=== PATIENT | female | born 1950 | race Caucasian/White ===

== ENCOUNTER 2017-10-02 07:54 | Outpatient (RCR) | payer OTHER ==
[~2017-10-02 07:54] MED LIST: ASPIRIN E.C. 8181 MG PO; CALCIUM 1200 W/1 SGL PO; CALCIUM 600MG+D1 TAB PO; CALCIUM600 M1 PO; CARDIZEM 30MG T30 MG PO; COZAAR 50MG50 MG/TAB PO; FLEET BISACODYL5 MG PO; HCTZ12.5TAB PO; IRON325 MG PO; MULTI VITAMINS1 TAB PO; NORCO 325 MG-7.1 TAB PO; OCUVITE1 TA1 PO; OSTEO-BI-FLEX 21 TAB PO; PEPCID 20MG TAB20 MG PO; PERCOCET 325 MG1 TA2 PO; SENNA8.6 MG PO; SYNTHROID 0.0.025 MG PO; TIROSINT50 MC1 PO; ZOFRAN 4MG T4 MG/TAB PO
== END 2017-10-20 13:25 | disposition home or self-care (01) ==
LOC: WSOH 07:54
DX: S23.3XXA Sprain of ligaments of thoracic spine, initial encounter (principal); X50.0XXA Overexertion from strenuous movement or load, initial encounter; Y92.512 Supermarket, store or market as the place of occurrence of the external cause; Y99.0 Civilian activity done for income or pay; Z88.5 Allergy status to narcotic agent

== ENCOUNTER → 2017-10-30 | Outpatient (CLI) | payer BC | LOC: COL.RAD 07:32 | DX: M48.54XA Collapsed vertebra, not elsewhere classified, thoracic region, initial encounter for fracture (principal); R29.890 Loss of height; Z98.890 Other specified postprocedural states; G89.29 Other chronic pain ==

== ENCOUNTER 2018-01-07 07:51 | Outpatient (CLI) | payer BC ==
[2006-07-08 08:43] VITALS: BP 129/77
[~2018-01-07] VITALS: Ht 144.8 cm; Wt 41.3 kg
[2018-01-07] MEDS ORDERED: COZAAR 25MG25 MG/TAB PO (08:05)
[2018-01-07 08:08] VITALS: BP 117/55; PULSE 69; TEMP 97.4
== END 2018-01-07 10:00 | disposition home or self-care (01) ==
LOC: EUO 07:51
DX: M81.0 Age-related osteoporosis without current pathological fracture (principal); M48.54XA Collapsed vertebra, not elsewhere classified, thoracic region, initial encounter for fracture; Z98.890 Other specified postprocedural states
CPT/HCPCS: J3489

== ENCOUNTER → 2018-03-16 | Outpatient (CLI) | payer BC ==
[~2018-03-16] MED LIST changes: +COZAAR 25MG25 MG/TAB PO
== END ==
LOC: MC.RAD 02-12 07:40
DX: Z12.31 Encounter for screening mammogram for malignant neoplasm of breast (principal); R92.0 Mammographic microcalcification found on diagnostic imaging of breast

== ENCOUNTER → 2018-03-19 | Outpatient (CLI) | payer BC | LOC: MC.RAD 07:56 | DX: R92.0 Mammographic microcalcification found on diagnostic imaging of breast (principal) ==

== ENCOUNTER → 2018-03-24 | Outpatient (CLI) | payer BC | LOC: MC.RAD 08:06 | DX: D24.2 Benign neoplasm of left breast (principal) | CPT/HCPCS: 30634 ==

== ENCOUNTER 2018-04-18 11:16 | Emergency (ER) | payer OTHER ==
[2006-07-08 08:43] VITALS: BP 129/77
[~2018-04-18] VITALS: Ht 144.8 cm; Wt 40.8 kg
[2018-04-18 11:19] VITALS: BP 161/82; TEMP 98.2
[2018-04-18] MEDS ORDERED: ROXICODONE 55 MG/TAB PO (11:39)
[2018-04-18] MEDS ORDERED: BENADRYL25 M2 PO (11:40)
[2018-04-18] MEDS ORDERED: NORCOELIX PO (12:38)
[2018-04-18 13:21] VITALS: PULSE 90
== END 2018-04-18 13:25 | disposition home or self-care (01) ==
LOC: COL.ER 11:16
DX: S50.01XA Contusion of right elbow, initial encounter (principal); S70.01XA Contusion of right hip, initial encounter; S20.212A Contusion of left front wall of thorax, initial encounter; Z87.891 Personal history of nicotine dependence; W19.XXXA Unspecified fall, initial encounter; Y92.89 Other specified places as the place of occurrence of the external cause

== ENCOUNTER → 2018-08-09 | Outpatient (CLI) | payer BC ==
[~2018-08-09] MED LIST changes: +BENADRYL25 M2 PO; +NORCOELIX PO; +ROXICODONE 55 MG/TAB PO
== END ==
LOC: COL.RAD 09:27
DX: R10.84 Generalized abdominal pain (principal)
CPT/HCPCS: Q9967

== ENCOUNTER → 2018-08-16 | Outpatient (CLI) | payer BC | LOC: COL.RAD 09:28 | DX: K22.4 Dyskinesia of esophagus (principal); Z90.3 Acquired absence of stomach [part of]; Z98.890 Other specified postprocedural states ==

== ENCOUNTER 2019-01-23 01:28 | Emergency (ER) | payer OTHER ==
[2006-07-08 08:43] VITALS: BP 129/77
[~2019-01-23] VITALS: Ht 144.8 cm; Wt 42.3 kg
[2019-01-23 01:32] VITALS: TEMP 97
[2019-01-23] MEDS ORDERED: OXY IR5 MG PO (01:47)
[2019-01-23] MEDS ORDERED: ZOFRAN ODT4 MG PO (02:54)
[2019-01-23] MEDS ORDERED: VALIUM 5MG T5 MG/TAB PO (02:54)
[2019-01-23] MEDS ORDERED: PERCOCET 325 MG1 TA2 PO (04:31)
[2019-01-23] MEDS ORDERED: DOXYCYCLINE 10100 MG PO (05:04)
[2019-01-23 05:40] VITALS: BP 139/81; PULSE 98
== END 2019-01-23 05:40 | disposition home or self-care (01) ==
LOC: COL.ER 01:28
DX: S52.502A Unspecified fracture of the lower end of left radius, initial encounter for closed fracture (principal); S42.202A Unspecified fracture of upper end of left humerus, initial encounter for closed fracture; J18.9 Pneumonia, unspecified organism; I10 Essential (primary) hypertension; E03.9 Hypothyroidism, unspecified; J45.909 Unspecified asthma, uncomplicated; Z88.5 Allergy status to narcotic agent; Z87.891 Personal history of nicotine dependence; W01.0XXA Fall on same level from slipping, tripping and stumbling without subsequent striking against object, initial encounter; Y92.59 Other trade areas as the place of occurrence of the external cause
CPT/HCPCS: J1100; J2270; J7030; Q4021

== ENCOUNTER 2019-04-23 14:30 | Emergency (ER) | payer OTHER ==
[2006-07-08 08:43] VITALS: BP 129/77
[~2019-04-23] VITALS: Ht 144.8 cm; Wt 45.0 kg
[~2019-04-23 14:30] MED LIST changes: +DOXYCYCLINE 10100 MG PO; +OXY IR5 MG PO; +VALIUM 5MG T5 MG/TAB PO; +ZOFRAN ODT4 MG PO
[2019-04-23 14:33] VITALS: TEMP 97.7
[2019-04-23 17:49] VITALS: BP 169/94; PULSE 94
== END 2019-04-23 17:49 | disposition home or self-care (01) ==
LOC: COL.ER 14:30
DX: S42.291A Other displaced fracture of upper end of right humerus, initial encounter for closed fracture (principal); I10 Essential (primary) hypertension; Z98.890 Other specified postprocedural states; Z88.6 Allergy status to analgesic agent; X50.1XXA Overexertion from prolonged static or awkward postures, initial encounter; Y99.0 Civilian activity done for income or pay
CPT/HCPCS: J3010

== ENCOUNTER → 2019-05-09 | Outpatient (CLI) | payer OTHER | LOC: COL.RAD 06:26 | DX: S42.211A Unspecified displaced fracture of surgical neck of right humerus, initial encounter for closed fracture (principal) ==

== ENCOUNTER 2019-09-01 15:00 | Inpatient (IN) | payer BC, MEDICARE ==
[~2019-09-01] VITALS: Ht 149.9 cm; Wt 52.0 kg
[2019-09-01 15:56] LABS: BASO % 0.4 % (0.0-2.0); EOS # 0.1 (0.0-0.7); EOS % 0.8 % (0-4.0); GRAN # 7.6 (1.4-6.5); GRAN % 81.9 % (42.2-75.2); HEMATOCRIT 45.6 % (37.0-47.0); HEMOGLOBIN 14.7 g/dl (12.5-16.0); MEAN CELL VOLUME 93 fl (80.0-100.0); MEAN CORPUSCULAR HEMOGLOBIN 30 pg (27.0-31.0); MEAN CORPUSCULAR HGB CONC 32 g/dl (33.0-37.0); MEAN PLATELET VOLUME 8.2 fl (7.4-10.4); MONO # 0.4 (0.1-0.6); MONO % 4.3 % (1.7-9.3); PLATELET COUNT 227 K/mm3 (130-400); RED BLOOD COUNT 4.91 M/mm3 (4.10-5.30); REDCELL DISTRIBUTION WIDTH-CV 13.2 % (11.5-14.5)
[2019-09-01 16:07] LABS: ALBUMIN 4.6 gm/dL (3.5-5.0); BILIRUBIN,TOTAL 0.3 mg/dL (0.0-1.0); CALCIUM 9.4 mg/dL (8.4-10.2); CREATININE, serum 0.81 (0.52-1.25); TOTAL PROTEIN 8.3 gm/dL (6.4-8.2)
[2019-09-01] MEDS ORDERED: NORCO 325 MG-51 TAB PO (17:20)
[2019-09-01 20:25] VITALS: BP 116/67; PULSE 88; TEMP 98.4
[2019-09-01 20:28] VITALS: BP 116/67; PULSE 88; TEMP 98.4
[2019-09-01 23:08] VITALS: BP 125/71; PULSE 84; TEMP 98.1
[2019-09-02 04:57] VITALS: BP 114/64; PULSE 90; TEMP 98.2
[2019-09-02 07:47] VITALS: BP 107/57; PULSE 86; TEMP 98.3
[2019-09-02 11:23] VITALS: BP 114/70; PULSE 81; TEMP 98.6
[2019-09-02 11:39] LABS: INR 1.1 (0.8-3.0); PROTHROMBIN TIME 12.6 SECONDS (9.7-12.8)
[2019-09-02 16:06] VITALS: BP 101/53; PULSE 82; TEMP 98.7
[2019-09-02 19:17] VITALS: BP 119/61; PULSE 79; TEMP 98.5
[2019-09-02 23:15] VITALS: BP 131/62; PULSE 85; TEMP 98.5
[2019-09-03 03:25] VITALS: BP 117/56; PULSE 83; TEMP 99
[2019-09-03 07:18] VITALS: BP 137/75; PULSE 86; TEMP 98.9
[2019-09-03 12:06] VITALS: BP 155/89; PULSE 88; TEMP 99.3
[2019-09-03 16:03] VITALS: BP 125/65; PULSE 76; TEMP 97.7
[2019-09-03 21:00] VITALS: BP 135/66; PULSE 71; TEMP 98.4
[2019-09-04] VITALS (7 sets, daily range): BP systolic 104–143; BP diastolic 59–82; PULSE 69–87; TEMP 97.7–99.5
[2019-09-04 06:12] LABS: BASO % 0.4 % (0.0-2.0); EOS # 0.2 (0.0-0.7); EOS % 4.7 % (0-4.0); GRAN # 3.1 (1.4-6.5); GRAN % 66.7 % (42.2-75.2); LYMPH % 20.8 % (20.0-51.0); MEAN CELL VOLUME 95 fl (80.0-100.0); MEAN CORPUSCULAR HGB CONC 32 g/dl (33.0-37.0); MONO # 0.3 (0.1-0.6); RED BLOOD COUNT 3.75 M/mm3 (4.10-5.30); REDCELL DISTRIBUTION WIDTH-CV 13.2 % (11.5-14.5)
[2019-09-04 06:25] LABS: HEMATOCRIT 35.5 % (37.0-47.0); HEMOGLOBIN 11.4 g/dl (12.5-16.0); MEAN CORPUSCULAR HEMOGLOBIN 30 pg (27.0-31.0); PLATELET COUNT 120 K/mm3 (130-400)
[2019-09-04 06:32] LABS: CALCIUM 8.2 mg/dL (8.4-10.2); CREATININE, serum 0.58 (0.52-1.25); POTASSIUM 4.4 mmol/L (3.4-5.0)
[2019-09-05 03:35] VITALS: BP 140/64; PULSE 73; TEMP 97.9
[2019-09-05 07:57] VITALS: BP 120/54; PULSE 67; TEMP 97.9
[2019-09-05 11:06] VITALS: BP 129/65; PULSE 71; TEMP 97.9
[2019-09-05 16:00] VITALS: BP 104/62; PULSE 68; TEMP 98.7
[2019-09-05 19:48] VITALS: BP 126/69; PULSE 77; TEMP 98.3
[2019-09-05 23:54] VITALS: BP 105/50; PULSE 67; TEMP 98.3
[2019-09-06 04:00] VITALS: BP 132/56; PULSE 67; TEMP 98.1
[2019-09-06 07:00] VITALS: BP 111/56; PULSE 61; TEMP 97.7
[2019-09-06 07:11] LABS: BASO % 0.2 % (0.0-2.0); EOS # 0.2 (0.0-0.7); EOS % 4.3 % (0-4.0); GRAN # 2.7 (1.4-6.5); GRAN % 60.3 % (42.2-75.2); HEMOGLOBIN 11.8 g/dl (12.5-16.0); LYMPH # 1.1 (1.2-3.4); LYMPH % 24.9 % (20.0-51.0); MEAN CELL VOLUME 92 fl (80.0-100.0); MEAN CORPUSCULAR HEMOGLOBIN 30 pg (27.0-31.0); MEAN CORPUSCULAR HGB CONC 33 g/dl (33.0-37.0); MEAN PLATELET VOLUME 8.7 fl (7.4-10.4); MONO # 0.4 (0.1-0.6); MONO % 9.9 % (1.7-9.3); PLATELET COUNT 137 K/mm3 (130-400); RED BLOOD COUNT 3.91 M/mm3 (4.10-5.30); REDCELL DISTRIBUTION WIDTH-CV 13.2 % (11.5-14.5)
[2019-09-06 07:13] LABS: HEMATOCRIT 36.1 % (37.0-47.0)
[2019-09-06 07:24] LABS: CALCIUM 8.8 mg/dL (8.4-10.2); CREATININE, serum 0.64 (0.52-1.25); POTASSIUM 3.9 mmol/L (3.4-5.0)
[2019-09-06 09:30] VITALS: BP 135/63; PULSE 61; TEMP 97.6
[2019-09-06 12:00] VITALS: BP 127/81; PULSE 96; TEMP 97.7
[2019-09-06 17:21] VITALS: BP 147/69; PULSE 77; TEMP 97.8
[2019-09-06 20:38] VITALS: BP 132/83; PULSE 97; TEMP 98.4
[2019-09-07 01:10] VITALS: BP 117/69; PULSE 79; TEMP 97.3
[2019-09-07 04:30] VITALS: BP 146/85; PULSE 79; TEMP 97.8
[2019-09-07 07:00] VITALS: BP 149/85; PULSE 67; TEMP 98.5
[2019-09-07 07:27] LABS: BASO % 0.2 % (0.0-2.0); GRAN # 5.2 (1.4-6.5); GRAN % 84.3 % (42.2-75.2); HEMATOCRIT 37.4 % (37.0-47.0); HEMOGLOBIN 12.6 g/dl (12.5-16.0); LYMPH # 0.6 (1.2-3.4); LYMPH % 9.6 % (20.0-51.0); MEAN CELL VOLUME 90 fl (80.0-100.0); MEAN CORPUSCULAR HEMOGLOBIN 30 pg (27.0-31.0); MEAN CORPUSCULAR HGB CONC 34 g/dl (33.0-37.0); MEAN PLATELET VOLUME 8.9 fl (7.4-10.4); MONO # 0.3 (0.1-0.6); MONO % 5.4 % (1.7-9.3); PLATELET COUNT 185 K/mm3 (130-400); RED BLOOD COUNT 4.17 M/mm3 (4.10-5.30); REDCELL DISTRIBUTION WIDTH-CV 13.2 % (11.5-14.5)
[2019-09-07 07:40] LABS: CALCIUM 9.2 mg/dL (8.4-10.2); CREATININE, serum 0.54 (0.52-1.25); POTASSIUM 3.9 mmol/L (3.4-5.0)
[2019-09-07 10:30] VITALS: BP 130/82; PULSE 65; TEMP 98.3
[2019-09-07 16:09] VITALS: BP 143/84; PULSE 72; TEMP 97.9
[2019-09-07 23:55] VITALS: BP 142/77; PULSE 83; TEMP 98.1
[2019-09-08 04:00] VITALS: BP 144/85; PULSE 75; TEMP 98.2
[2019-09-08 07:11] VITALS: BP 149/79; PULSE 88; TEMP 97.8
[2019-09-08] MEDS ORDERED: NORCO 325 MG-51 TAB PO (11:07)
[2019-09-08] MEDS ORDERED: B-121000 MCG PO (11:08)
[2019-09-08 12:23] VITALS: BP 150/80; PULSE 79; TEMP 97
[2019-09-08 13:33] VITALS: BP 150/80; PULSE 79; TEMP 97
== END 2019-09-08 15:00 | DRG 551 ==
LOC: COL.ER 15:00 → SURG 18:03
PROVIDERS: Family Medicine; Physician Assistant; Student in an Organized Health Care Education/Training Program; ADMIT Internal Medicine
PROC: 3E0R33Z Introduction of Anti-inflammatory into Spinal Canal, Percutaneous Approach (ICD-10-PCS; principal; 2019-09-06)
DX: S32.049A Unspecified fracture of fourth lumbar vertebra, initial encounter for closed fracture (principal); E43 Unspecified severe protein-calorie malnutrition; S22.069A Unspecified fracture of T7-T8 vertebra, initial encounter for closed fracture; S22.20XA Unspecified fracture of sternum, initial encounter for closed fracture; S32.592A Other specified fracture of left pubis, initial encounter for closed fracture; S22.059A Unspecified fracture of T5-T6 vertebra, initial encounter for closed fracture; E03.9 Hypothyroidism, unspecified; I10 Essential (primary) hypertension; K21.9 Gastro-esophageal reflux disease without esophagitis; G89.29 Other chronic pain; M54.9 Dorsalgia, unspecified; Z96.642 Presence of left artificial hip joint; W19.XXXA Unspecified fall, initial encounter; Y92.029 Unspecified place in mobile home as the place of occurrence of the external cause; Z68.21 Body mass index [BMI] 21.0-21.9, adult
CPT/HCPCS: 99222-AI; 99231-AI; 99232-AI; 99239; A9284; J1644; J2270; J3301; J7030

== ENCOUNTER → 2019-09-29 | Outpatient (CLI) | payer BC ==
[~2019-09-29] MED LIST changes: +B-121000 MCG PO; +NORCO 325 MG-51 TAB PO
== END ==
LOC: MC.RAD 11:00
DX: R92.1 Mammographic calcification found on diagnostic imaging of breast (principal); Z98.82 Breast implant status

== ENCOUNTER 2019-10-05 10:07 | Outpatient (CLI) | payer BC ==
[2006-07-08 08:43] VITALS: BP 129/77
[~2019-10-05] VITALS: Ht 144.8 cm; Wt 51.3 kg
[2019-10-05] VITALS (11 sets, daily range): BP systolic 113–176; BP diastolic 45–97; PULSE 61–96; TEMP 98.3
[2019-10-05] MEDS ORDERED: VITAMIN B12 1541 TAB PO (10:59)
[2019-10-05] MEDS ORDERED: LYRICA 25MG CAP25 MG PO (11:03)
[2019-10-05] MEDS ORDERED: LYRICA 50MG CAP50 MG PO (11:03)
[2019-10-05] MEDS ORDERED: ROXICODONE 55 MG/TAB PO (11:03)
--- NOTE | 2019-10-05 12:11 | NUR ---
SEE MERGE FOR MEDICATION ADMINISTRATION TIMES INTRA\POST SEDATION ASSESSMENTS.
--- NOTE | 2019-10-05 13:03 | NUR ---
Pt returned to room 10.Report from Daniella Geller.
--- NOTE | 2019-10-05 14:57 | NUR ---
Discharge instructions given to pt.Pt verbalizes understanding.INT removed,catheter tip intact.
--- NOTE | 2019-10-05 15:22 | NUR ---
Pt escorted out via wheelhair by this nurse.
== END 2019-10-05 15:22 | disposition home or self-care (01) ==
LOC: COL.CAR 10:07
DX: S32.040A Wedge compression fracture of fourth lumbar vertebra, initial encounter for closed fracture (principal); Z96.642 Presence of left artificial hip joint; Z88.8 Allergy status to other drugs, medicaments and biological substances; Z87.891 Personal history of nicotine dependence
CPT/HCPCS: J2250; J3010; J7120

== ENCOUNTER 2020-04-18 10:43 | Outpatient (CLI) | payer MEDICARE, OTHER ==
[2006-07-08 08:43] VITALS: BP 129/77
[~2020-04-18] VITALS: Ht 144.8 cm; Wt 49.9 kg
[~2020-04-18 10:43] MED LIST changes: +LYRICA 25MG CAP25 MG PO; +LYRICA 50MG CAP50 MG PO; +VITAMIN B12 1541 TAB PO
[2020-04-18 11:15] VITALS: BP 149/92; PULSE 92; TEMP 97.8
[2020-04-18] MEDS ORDERED: LIORESAL 1010 MG/TAB PO (11:19)
[2020-04-18] MEDS ORDERED: VITAMIN D 1001000 IU PO (11:20)
[2020-04-18] MEDS ORDERED: TUMS500 MG PO (11:20)
[2020-04-18] MEDS ORDERED: BENTYL 10MG10 MG/CAP PO (11:21)
== END 2020-04-18 11:45 | disposition home or self-care (01) ==
LOC: EUO 10:43
DX: M81.0 Age-related osteoporosis without current pathological fracture (principal)
CPT/HCPCS: J3489

== ENCOUNTER → 2020-05-31 | Outpatient (CLI) | payer MEDICARE, OTHER ==
[~2020-05-31] MED LIST changes: +BENTYL 10MG10 MG/CAP PO; +LIORESAL 1010 MG/TAB PO; +TUMS500 MG PO; +VITAMIN D 1001000 IU PO
== END ==
LOC: COL.RAD 15:19
DX: J90 Pleural effusion, not elsewhere classified (principal); J44.9 Chronic obstructive pulmonary disease, unspecified; Z98.890 Other specified postprocedural states; Z87.19 Personal history of other diseases of the digestive system
CPT/HCPCS: Q9967

== ENCOUNTER → 2020-06-28 | Outpatient (CLI) | payer MEDICARE, OTHER | LOC: COL.RAD 11:13 | DX: N20.0 Calculus of kidney (principal); K82.8 Other specified diseases of gallbladder; Z98.890 Other specified postprocedural states | CPT/HCPCS: Q9967 ==

== ENCOUNTER 2021-03-20 13:16 | Day surgery (SDC) | payer MEDICARE, OTHER ==
[2006-07-08 08:43] VITALS: BP 129/77
[2021-03-20] VITALS (8 sets, daily range): BP systolic 82–129; BP diastolic 49–88; PULSE 74–96; TEMP 98–98.1
[~2021-03-20] VITALS: Ht 137.2 cm; Wt 36.4 kg
[2021-03-20] MEDS ORDERED: MOVE FREE JOIN1 EACH PO (14:12)
[2021-03-20] MEDS ORDERED: CIPRO 500MG TA500 MG PO (14:13)
[2021-03-20] MEDS ORDERED: CALCIUM-500 5001 CTB PO (14:15)
[2021-03-20] MEDS ORDERED: PRILOTC PO (14:18)
[2021-03-20] MEDS ORDERED: TYLENOL 500MG500 MG PO (14:21)
[2021-03-20] MEDS ORDERED: CLARITIN 1010 MG/TAB PO (14:21)
[2021-03-20] MEDS ORDERED: OCUVITE1 TA1 PO (14:22)
[2021-03-20] MEDS ORDERED: CENTRUM SILVER1 CTB PO (14:23)
[2021-03-20] MEDS ORDERED: MIRALAX119G PO (14:24)
[2021-03-20] MEDS ORDERED: GAS RELIEF125 MG PO (14:25)
--- NOTE | 2021-03-20 15:25 | NUR ---
Heart is regular. Breath is shallow, lungs are clear. Bowel sounds audible.
--- NOTE | 2021-03-20 19:23 | NUR ---
PATIENT ARRIVES TO ROOM, DENIES ANY C/O AT THIS TIME. INSTRUCTED ON CRITERIA TO BE DISMISSED, PATIENT VERBALIZED UNDERSTANDING.
--- NOTE | 2021-03-20 22:10 | NUR ---
REVIEWED WITH PATIENT DISCHARGE INSTRUCTIONS WITH NO FURTHER QUESTIONS OR CONCERNS. IV SITE DISCONTINUED FOR DISCHARGE STATUS. PATIENT VOIDED X1 PRIOR TO DISCHARGE OF RED TINGED URINE WITH NO CLOTS OBSERVED IN TOILET BOWL. ENCOURAGED PATIENT TO DRINK FLUIDS AND REVIEWED WITH PATIENT WHEN TO CALL DR POST PROCEDURE. PATIENT'S SPOUSE PRESENT ON DISCHARGE TO TAKE PATIENT HOME. PATIENT ESCORTED OFF UNIT PER W/C WITH STAFF EMPLOYEE ESCORT.
[2021-03-21 00:33] VITALS: BP 123/49; PULSE 70
== END 2021-03-20 22:20 | disposition home or self-care (01) ==
LOC: SDCO 13:16 → SURG 19:15 → SDCO 22:20
DX: N20.1 Calculus of ureter (principal); R35.0 Frequency of micturition; E03.9 Hypothyroidism, unspecified; R32 Unspecified urinary incontinence; D50.9 Iron deficiency anemia, unspecified; K21.9 Gastro-esophageal reflux disease without esophagitis; G89.29 Other chronic pain; M81.0 Age-related osteoporosis without current pathological fracture; Z79.83 Long term (current) use of bisphosphonates; Z79.890 Hormone replacement therapy; Z79.891 Long term (current) use of opiate analgesic; Z79.82 Long term (current) use of aspirin; Z79.899 Other long term (current) drug therapy; G62.9 Polyneuropathy, unspecified
CPT/HCPCS: OP; C1894; C2617; J0690; J2405; J2704; J3010; J7120; Q9967

== ENCOUNTER 2021-04-05 07:19 | Inpatient (IN) | payer MEDICARE, OTHER ==
[2006-07-08 08:43] VITALS: BP 129/77
[2021-04-05] VITALS (26 sets, daily range): BP systolic 94–147; BP diastolic 34–97; PULSE 71–102; TEMP 97.5–97.7
[~2021-04-05] VITALS: Ht 137.2 cm; Wt 36.5 kg
[~2021-04-05 07:19] MED LIST changes: +CALCIUM-500 5001 CTB PO; +CENTRUM SILVER1 CTB PO; +CIPRO 500MG TA500 MG PO; +CLARITIN 1010 MG/TAB PO; +GAS RELIEF125 MG PO; +MIRALAX119G PO; +MOVE FREE JOIN1 EACH PO; +PRILOTC PO; +TYLENOL 500MG500 MG PO
[2021-04-05] MEDS ORDERED: OMNICEF 300MG300 MG PO (08:22)
[2021-04-05] MEDS ORDERED: BENADRYL25 M2 PO (08:50)
[2021-04-05] MEDS ORDERED: COMPAZINE 5MG TA5 MG PO (08:55)
[2021-04-05] MEDS ORDERED: NATURAL E400 IU PO (08:56)
--- NOTE | 2021-04-05 13:33 | NUR ---
Patient down to radiology for neph tube placement.
--- NOTE | 2021-04-05 14:03 | NUR ---
PT REPORTS PAIN BUT UNABLE TO RATE. GIVEN 0.5 VERSED AND 25 MCG FENTANYL KING SUNG
--- NOTE | 2021-04-05 14:19 | NUR ---
GIVEN VERSED 0.5 MG AND FENTANYL 25 MCG FOR PAIN KING SUNG
--- NOTE | 2021-04-05 14:35 | NUR ---
BP CUFF NOT WORKING
--- NOTE | 2021-04-05 15:10 | NUR ---
CALLED REPORT TO LISA ESTRELLA. PT ASSISTED TO WHEELCHAIR. DRAIN IN PLACE AND SECURED.
--- NOTE | 2021-04-05 15:21 | NUR ---
Patient back from neph tube placement to room by wheelchair. States she is having some back pain, educated patient on VS and pain medication use.
--- NOTE | 2021-04-05 18:29 | NUR ---
Contacted Dr. Kaufman re pain medications, patient states she is allergic to norco and home roxycodone helps with back pain, orders changed per TORB. Patient doing well this afternoon, encouraged increased fluid intake. Voided clear peach urine. Spouse at bedside. Patient denies further needs at this time. Denies needs at this time. Will report off to mini bar attendant.
--- NOTE | 2021-04-05 18:40 | NUR ---
Contacted Dr. Kaufman, patient called out to nurses station, states she is having sudden chest pain, having difficulties catching her breath and having dry heaves/nausea. Contacted Serena REESE for hospitalist consult, orders for EKG, chest xray, and labs. Contacted departments for stat orders. Reported off to community health planning director.
[2021-04-05 19:25] LABS: HEMATOCRIT 43.3 % (37.0-47.0); HEMOGLOBIN 14.5 g/dl (12.5-16.0); MEAN CELL VOLUME 92 fl (80.0-100.0); MEAN CORPUSCULAR HEMOGLOBIN 31 pg (27.0-31.0); MEAN CORPUSCULAR HGB CONC 34 g/dl (33.0-37.0); PLATELET COUNT 177 K/mm3 (130-400); RED BLOOD COUNT 4.71 M/mm3 (4.10-5.30); REDCELL DISTRIBUTION WIDTH-CV 14.4 % (11.5-14.5)
[2021-04-05 19:45] LABS: ALBUMIN 3.6 gm/dL (3.5-5.0); BILIRUBIN,TOTAL 0.3 mg/dL (0.0-1.0); CALCIUM 8.9 mg/dL (8.4-10.2); CREATININE, serum 0.8 (0.52-1.25); POTASSIUM 4.4 mmol/L (3.4-5.0); TOTAL PROTEIN 6.9 gm/dL (6.4-8.2)
[2021-04-05 19:52] LABS: MAGNESIUM 1.7 mg/dL (1.6-2.3); PHOSPHOROUS 3.9 mg/dL (2.5-4.5)
[2021-04-05 20:32] LABS: BAND 19 % (0-10); LYMPHOCYTE 2 % (20.0-51.0); NEUTROPHILS 79 % (42.0-75.2)
[2021-04-05 20:33] LABS: PLATELET ESTIMATE NORMAL (NORMAL)
[2021-04-06] VITALS (7 sets, daily range): BP systolic 91–131; BP diastolic 39–69; PULSE 71–93; TEMP 97–99.2
--- NOTE | 2021-04-06 03:49 | NUR ---
PATIENT C/O BACK PAIN DILAUDID 0.5 MG GIVEN AND IV FLUID STARTED. RIGHT FLANK NEPHRECTONY TUBE INTACT. PATIENT WENT DOWN FOR ABDOMINAL CT. TOLERATING CLEAR LIQUIDS. DENIES NAUSEA/VOMITING. RECEIVED ONE DOSE OF UNYSAN. ALERT AND ORIENTED X4. WILL CONTINUE TO MONITOR.
--- NOTE | 2021-04-06 10:26 | NUR ---
Discharge Plan: Home with , Gene. Sw met with the pt, (, Gene present in room (ph# [phone]), who stated her preference to return home in [place] once medially stable. Pt is independent on all her ADLs and uses a walker at home. The pt informed Sw that her is her caregiver and helps her with anything she needs. Pt informed Sw that her PCP is Dr. Toshia Uribe at [facility]. Pt receives her medication from [facility] in [place], [place]. Pt has used HH services PT in the past and does not remember the name. Pt states she does not have a DPOA- Hc and is not interested in one at this time. No other needs stated at this time. Sw to await further recommendations and follow up as needed.
--- NOTE | 2021-04-06 17:30 | NUR ---
PT HAD NO C/O THIS SHIFT. NORCO PO CONTROLLING PAIN WELL. NEPHTUBE PATENT SEE I&O'S.
--- NOTE | 2021-04-06 21:30 | NUR ---
PT AWAKE, ALERT AND ORIENTED X4. REPORTS CHRONIC BACK PAIN AND AT NEPHROSTOMY TUBE INSERTION SITE. HAS IVF TO RIGHT WRIST, INFUSING WITHOUT PROBLEM. RT NEPH TUBE TO BSD, EMPTIED FOR 250CC OF LIGHT YELLOW URINE. ASSISTED TO BATHROOM, VOIDS 200CC OF YELLOW URINE. GAIT STEADY. BACK TO BED WITHOUT PROBLEM. DENIES NEEDS AT THIS TIME.
--- NOTE | 2021-04-07 00:04 | NUR ---
PT REPORTS BACK PAIN, MEDICATED WITH NORCO 1/2 TAB OF 5/325MG PO AT THIS TIME.
[2021-04-07 03:37] VITALS: BP 115/64; PULSE 77; TEMP 98.5
--- NOTE | 2021-04-07 05:45 | NUR ---
NORCO 2.5MG PO FOR BACK PAIN. NEPH TUBE DRAINING WELL.
[2021-04-07 06:30] LABS: BASO % 0.6 % (0.0-2.0); EOS # 0.1 (0.0-0.7); EOS % 1.8 % (0-4.0); GRAN # 3.3 (1.4-6.5); GRAN % 64.5 % (42.2-75.2); LYMPH # 1.3 (1.2-3.4); LYMPH % 26.2 % (20.0-51.0); MEAN CELL VOLUME 94 fl (80.0-100.0); MEAN CORPUSCULAR HGB CONC 33 g/dl (33.0-37.0); MEAN PLATELET VOLUME 8.8 fl (7.4-10.4); MONO # 0.4 (0.1-0.6); MONO % 6.9 % (1.7-9.3); PLATELET COUNT 142 K/mm3 (130-400); RED BLOOD COUNT 3.85 M/mm3 (4.10-5.30); REDCELL DISTRIBUTION WIDTH-CV 14.9 % (11.5-14.5)
[2021-04-07 06:40] LABS: HEMATOCRIT 36.2 % (37.0-47.0); HEMOGLOBIN 12.1 g/dl (12.5-16.0); MEAN CORPUSCULAR HEMOGLOBIN 31 pg (27.0-31.0)
[2021-04-07 06:49] LABS: CALCIUM 7.6 mg/dL (8.4-10.2); CREATININE, serum 0.68 (0.52-1.25); POTASSIUM 3.6 mmol/L (3.4-5.0)
[2021-04-07 08:41] VITALS: BP 131/78; PULSE 77; TEMP 98.3
--- NOTE | 2021-04-07 10:49 | NUR ---
DISCHARGE INSTRUCTIONS REVIEWED WITH PATIENT AND SPOUSE. QUESTIONS SOLICITED AND ANSWERED. PT LEFT PER WHEEL CHAIR IN POV.
== END 2021-04-07 10:55 | disposition home or self-care (01) | DRG 694 ==
LOC: SDCO 07:19 → SURG 07:30 → SDCO 10:30 → SURG 04-07 10:55
PROVIDERS: Hospitalist; Nurse Practitioner Family; ADMIT Urology
PROC: 0TJ98ZZ Inspection of Ureter, Via Natural or Artificial Opening Endoscopic (ICD-10-PCS; principal; 2021-04-05 10:30)
DX: N20.0 Calculus of kidney (principal); K44.9 Diaphragmatic hernia without obstruction or gangrene; I10 Essential (primary) hypertension; E03.9 Hypothyroidism, unspecified; G89.29 Other chronic pain; M54.9 Dorsalgia, unspecified; M81.0 Age-related osteoporosis without current pathological fracture; G62.9 Polyneuropathy, unspecified; Z87.440 Personal history of urinary (tract) infections; M19.90 Unspecified osteoarthritis, unspecified site; Z96.642 Presence of left artificial hip joint
CPT/HCPCS: 99223; 99232-AI; C1729; C1769; C9113; J0690; J1100; J1170; J2250; J2270; J2370; J2405; J2543; J2704; J3010; J7030; J7120; Q9967

== ENCOUNTER → 2021-05-10 | Outpatient (CLI) | payer MEDICARE, OTHER ==
[~2021-05-10] MED LIST changes: +COMPAZINE 5MG TA5 MG PO; +LEVOXYL0.05 MG PO; +NATURAL E400 IU PO; +OMNICEF 300MG300 MG PO; +PHENERGAN 25 TA25 MG PO
== END ==
LOC: COL.RAD 07:01
DX: N20.1 Calculus of ureter (principal); N99.71 Accidental puncture and laceration of a genitourinary system organ or structure during a genitourinary system procedure
CPT/HCPCS: Q9967

== ENCOUNTER 2021-09-11 07:30 | Outpatient (CLI) | payer MEDICARE, OTHER ==
[2006-07-08 08:43] VITALS: BP 129/77
[~2021-09-11] VITALS: Ht 137.2 cm; Wt 33.0 kg
[~2021-09-11 07:30] MED LIST changes: -LEVOXYL0.05 MG PO; -PHENERGAN 25 TA25 MG PO
[2021-09-11] MEDS ORDERED: PHENERGAN 25 TA25 MG PO (08:03)
[2021-09-11] MEDS ORDERED: LEVOXYL0.05 MG PO (08:04)
[2021-09-11 08:26] VITALS: BP 100/66; PULSE 95; TEMP 98.5
== END 2021-09-11 11:44 | disposition home or self-care (01) ==
LOC: EUO 07:30
DX: M81.0 Age-related osteoporosis without current pathological fracture (principal)
CPT/HCPCS: J3489

== ENCOUNTER → 2021-10-23 | Outpatient (CLI) | payer MEDICARE, OTHER ==
[~2021-10-23] MED LIST changes: +LEVOXYL0.05 MG PO; +PHENERGAN 25 TA25 MG PO
== END ==
LOC: COL.RAD 10:35
DX: Z01.812 Encounter for preprocedural laboratory examination (principal); K44.9 Diaphragmatic hernia without obstruction or gangrene; N20.0 Calculus of kidney; M43.8X5 Other specified deforming dorsopathies, thoracolumbar region; Z96.642 Presence of left artificial hip joint
CPT/HCPCS: Q9967

== ENCOUNTER 2022-06-16 13:22 | Inpatient (IN) | payer MEDICARE, OTHER ==
[~2022-06-16] VITALS: Ht 144.8 cm; Wt 43.0 kg
[2022-06-16 14:35] LABS: COLLECTION METHOD CATHETER
[2022-06-16 14:44] LABS: MUCOUS Present (NOT PRESENT); SQUAMOUS EPITHELIAL 0-2 /hpf (0-10); URINE APPEARANCE Hazy (CLEAR/HAZY); URINE BACTERIA Moderate /hpf (NONE SEEN); URINE COLOR Yellow (YELLOW); URINE RBC 20-50 /hpf (0-2)
[2022-06-16 14:45] LABS: PH 5.5 (5.0-8.5); URINE BLOOD 2+ (NEGATIVE); URINE GLUCOSE Negative (NEGATIVE); URINE KETONE Negative (NEGATIVE); URINE NITRATE Negative (NEGATIVE); URINE PROTEIN(semi-quant) 2+ (NEGATIVE)
[2022-06-16 15:06] LABS: BASO % 0.2 % (0.0-2.0); GRAN # 11.9 K/mm3 (1.4-6.5); GRAN % 89.8 % (42.2-75.2); HEMATOCRIT 37.3 % (37.0-47.0); HEMOGLOBIN 12.4 g/dl (12.5-16.0); LYMPH # 0.5 K/mm3 (1.2-3.4); LYMPH % 4.1 % (20.0-51.0); MEAN CELL VOLUME 100 fl (80.0-100.0); MEAN CORPUSCULAR HEMOGLOBIN 33 pg (27-31); MEAN CORPUSCULAR HGB CONC 33 g/dl (33.0-37.0); MEAN PLATELET VOLUME 8.7 fl (7.4-10.4); MONO # 0.7 K/mm3 (0.1-0.6); MONO % 5.4 % (1.7-9.3); PLATELET COUNT 197 K/mm3 (130-400); RED BLOOD COUNT 3.74 M/mm3 (4.10-5.30); REDCELL DISTRIBUTION WIDTH-CV 14.3 % (11.5-14.5)
[2022-06-16 15:11] LABS: INR 1.2 (0.8-3.0); PROTHROMBIN TIME 13.4 SECONDS (9.7-12.8)
[2022-06-16 15:16] LABS: ALBUMIN 2.4 gm/dL (3.4-4.8); BILIRUBIN,TOTAL 0.7 mg/dL (0.2-1.2); CALCIUM 9.4 mg/dL (8.4-10.2); CREATININE, serum 0.84 mg/dL (0.57-1.11); POTASSIUM 4.1 mmol/L (3.5-4.5); TOTAL PROTEIN 6.8 gm/dL (6.2-8.1)
[2022-06-16 17:26] VITALS: BP 123/72; PULSE 93; TEMP 97.8
[2022-06-16] MEDS ORDERED: PRIL40 PO (17:55)
[2022-06-16] MEDS ORDERED: SYNTHROID 0.0.025 MG PO (17:56)
[2022-06-16] MEDS ORDERED: ZOFRAN ODT4 MG PO (17:57)
[2022-06-16] MEDS ORDERED: VITAMIN PATCH TD (18:01)
[2022-06-16] MEDS ORDERED: NATURAL IRON65 MG PO (18:02)
--- NOTE | 2022-06-16 18:42 | NUR ---
Patient arrived to the floor at 1700 via stretcher, had a fall 11 days ago, with INT on her right hand, with feeding tube on her abdomen which she stated that it was inserted last October this year and she has to use it every Thursday for protein nutrition, seen by the Dr. Hall at this time, alert and oriented x4, meds reviewed, vitals taken and stable, given morphine and fluids as ordered.
--- NOTE | 2022-06-16 19:00 | NUR ---
PATIENT VERBALIZING SHE SEE'S . PATIENT COMMUNICATED THIS TO HER NURSE & HOSPITALIST TEAM, SEE ORDERS.
[2022-06-16] MEDS ORDERED: DULCOLAX TAB5 MG PO (19:27)
[2022-06-16] MEDS ORDERED: MIRALAX PA17 GM/Dose PO (19:28)
[2022-06-16 19:42] VITALS: BP 123/60; PULSE 92; TEMP 98.8
--- NOTE | 2022-06-16 21:31 | NUR ---
PT A&OX4 RESTING IN BED. ASSESSMENT COMPLETE. PT RATES PN A 0/10 AT REST AND 8/10 W MOVEMENT. NS IN RF IV AT 75ML/HR. TELE IN PLACE AND VS STABLE. SCD AND JOSE MARTIN HOSE TO LLE. SINGH IN PLACE W BINDU URINE OUTPUT. PEG TUBE IN PLACE, DRESSING CDI. PT REPORTS SHE WILL CHANGE HER DRESSING ECTOR. VITAMIN PATCH TO WANDER. NO NEEDS AT THIS TIME. CALL LIGHT WITHIN REACH. FALL PRECAUTIONS IN PLACE.
--- NOTE | 2022-06-16 22:45 | NUR ---
PT REFUSES CT SCAN UNTIL DEFINITE ANSWER IF MEDICARE WILL PAY FOR SCAN. WILL FOLLOW UP IN THE MORNING.
[2022-06-16 23:50] VITALS: BP 110/65; PULSE 85; TEMP 98.7
[2022-06-17 04:26] VITALS: BP 112/60; PULSE 79; TEMP 97.7
[2022-06-17 06:36] LABS: CALCIUM 8.7 mg/dL (8.4-10.2); CREATININE, serum 0.83 mg/dL (0.57-1.11); POTASSIUM 4.5 mmol/L (3.5-4.5)
[2022-06-17 07:01] LABS: HEMOGLOBIN 10.9 g/dl (12.5-16.0); MEAN CELL VOLUME 104 fl (80.0-100.0); MEAN CORPUSCULAR HEMOGLOBIN 33 pg (27-31); MEAN CORPUSCULAR HGB CONC 32 g/dl (33.0-37.0); MEAN PLATELET VOLUME 9.3 fl (7.4-10.4); PLATELET COUNT 189 K/mm3 (130-400); RED BLOOD COUNT 3.31 M/mm3 (4.10-5.30); REDCELL DISTRIBUTION WIDTH-CV 14.2 % (11.5-14.5)
[2022-06-17 07:05] LABS: HEMATOCRIT 34.5 % (37.0-47.0)
[2022-06-17 07:45] VITALS: BP 123/68; PULSE 77; TEMP 97.5
[2022-06-17 08:37] LABS: BAND 7 % (0-10); LYMPHOCYTE 9 % (20.0-51.0); METAMYELOCYTE 1 % (0-0); NEUTROPHILS 81 % (42.0-75.2); PLATELET ESTIMATE NORMAL (NORMAL)
--- NOTE | 2022-06-17 10:58 | NUR ---
bending shed worker met with patient to complete intake and discuss discharge plan. Patient reports that she lives at home with her Mundo ([phone]). Mundo present at bedside. Patient reports that she in mainly independent with her ADL's but Mundo does help her with bathing. She does utilize a rollator walker to assist with mobility. Patient has no home oxygen needs. PCP is Dr. Villalba and she utilizes [facility] for prescriptions. Patient reports that she does not have a DPOA-HC established. Education provided and SW offered to create one during stay to which patient denies stating " i have too much going on". SW spoke with the patient about the need for skilled therapy post surgery. Patient states [facility] and her second choice [facility]. Tori with [facility] contacted and referral provided. Patients clinical referral faxed to [facility]. DIscharge plan: [facility] vs. SNF
[2022-06-17 11:57] VITALS: BP 109/57; PULSE 80; TEMP 97.4
--- NOTE | 2022-06-17 12:22 | NUR ---
Nancy: [facility] Situation: soda tester went to room on rounds Background: Pt was resting and content Assessment: No needs right now. Pt appreciated the visit Recommendation: soda tester will follow up as needed
--- NOTE | 2022-06-17 15:52 | NUR ---
[facility] notified this SW that they are full until at least next week.
[2022-06-17 16:58] VITALS: BP 127/64; PULSE 83; TEMP 98
--- NOTE | 2022-06-17 18:10 | NUR ---
Patient alert and orientedx4, with IV on her right hand infusing well, with soriano catheter draining well, with feeding tube clamped at this time, patient also refused to have her CT scan done, Zachery informed regarding this, instructed to be on NPO postmidnight and clear liquids in am, call light and personal items within reach.
[2022-06-17 20:00] VITALS: BP 107/53; PULSE 76; TEMP 97.5
--- NOTE | 2022-06-17 20:12 | NUR ---
PT A&OX4 RESTING IN BED. PT RATES PN 7/10 IN RT HIP, DENIES WANTING ANYTHING FOR PN. ASSESSMENT COMPLETE. 45%NS AT 60ML/HR TO RT WRIST. VS STABLE AND TELE IN PLACE. PEG TUBE DRESSING CDI. PT DENIES USE OF SCDS AND JOSE MARTIN HOSE. SINGH IN PLACE W URINE OUTPUT. FALL PRECAUTIONS IN PLACE. NO NEEDS AT THIS TIME. CALL LIGHT WITHIN REACH.
[2022-06-18] VITALS (13 sets, daily range): BP systolic 105–140; BP diastolic 42–71; PULSE 73–95; TEMP 97.1–98.9
[2022-06-18 06:59] LABS: BASO % 0.2 % (0.0-2.0); EOS # 0.1 K/mm3 (0.0-0.7); EOS % 0.8 % (0.0-4.0); GRAN # 8.6 K/mm3 (1.4-6.5); GRAN % 81.4 % (42.2-75.2); LYMPH # 1.2 K/mm3 (1.2-3.4); LYMPH % 11.1 % (20.0-51.0); MEAN CELL VOLUME 104 fl (80.0-100.0); MEAN CORPUSCULAR HGB CONC 31 g/dl (33.0-37.0); MEAN PLATELET VOLUME 9.2 fl (7.4-10.4); MONO # 0.6 K/mm3 (0.1-0.6); MONO % 5.5 % (1.7-9.3); PLATELET COUNT 208 K/mm3 (130-400); RED BLOOD COUNT 2.73 M/mm3 (4.10-5.30); REDCELL DISTRIBUTION WIDTH-CV 14.2 % (11.5-14.5)
[2022-06-18 07:10] LABS: MEAN CORPUSCULAR HEMOGLOBIN 33 pg (27-31)
[2022-06-18 07:11] LABS: HEMATOCRIT 28.3 % (37.0-47.0)
[2022-06-18 07:13] LABS: HEMOGLOBIN 8.9 g/dl (12.5-16.0)
[2022-06-18 07:15] LABS: CALCIUM 8.5 mg/dL (8.4-10.2); CREATININE, serum 0.84 mg/dL (0.57-1.11); POTASSIUM 3.9 mmol/L (3.5-4.5)
--- NOTE | 2022-06-18 12:26 | NUR ---
Patient wheeled to OR for surgery at 1225 by Seferino, IV infusing well on right forearm, with soriano catheter draining well, A/Ox4, preoperative checklist done, maintained on NPO.
--- NOTE | 2022-06-18 13:58 | NUR ---
Tori with [facility] accepts patient to care upon discharge.
--- NOTE | 2022-06-18 15:45 | NUR ---
Patient arrived to the floor at 1435 from PACU, with IV infusing well on right arm, with steristrip,4x4 and tegaderm clean, dry and intact, vitals taken, on clear liquids and tolerated one jello cup, denies pain at this time, SCD's on, with soriano catheter draining well, refused to use the IS at this time, will continue to monitor.
--- NOTE | 2022-06-18 20:46 | NUR ---
PT A&OX4 RESTING IN BED. ASSESSMENT COMPLETE. PT DENYING MEDS. PN RATED AN 8/10 IN RIGHT HIP. SINGH DD W PALE YELLOW OUTPUT. TEDS AND SCDS TO BLE. 45% NS RUNNING IN RT WRIST IV. TELE IN PLACE AND VS STABLE. NO NEEDS AT THIS TIME. FALL PRECAUTIONS IN PLACE. CALL LIGHT WITHIN REACH.
[2022-06-19] VITALS (7 sets, daily range): BP systolic 114–144; BP diastolic 51–79; PULSE 76–88; TEMP 98–98.8
[2022-06-19 06:41] LABS: BASO # 0.1 K/mm3 (0.0-0.2); BASO % 0.4 % (0.0-2.0); EOS % 0.3 % (0.0-4.0); GRAN # 9.9 K/mm3 (1.4-6.5); GRAN % 84.3 % (42.2-75.2); HEMOGLOBIN 10.1 g/dl (12.5-16.0); LYMPH % 8.4 % (20.0-51.0); MEAN CELL VOLUME 103 fl (80.0-100.0); MEAN CORPUSCULAR HEMOGLOBIN 33 pg (27-31); MEAN CORPUSCULAR HGB CONC 32 g/dl (33.0-37.0); MEAN PLATELET VOLUME 8.8 fl (7.4-10.4); MONO # 0.7 K/mm3 (0.1-0.6); MONO % 5.5 % (1.7-9.3); PLATELET COUNT 204 K/mm3 (130-400)
[2022-06-19 06:42] LABS: HEMATOCRIT 31.9 % (37.0-47.0)
[2022-06-19 06:59] LABS: CALCIUM 8.1 mg/dL (8.4-10.2); CREATININE, serum 0.77 mg/dL (0.57-1.11); POTASSIUM 3.1 mmol/L (3.5-4.5)
--- NOTE | 2022-06-19 09:46 | NUR ---
PATIENT ALERT AND ORIENTED X4. VSS. PATIENT HERE FOR RIGHT HIP FRACTURE. PATIENT REFUSED MEDS WITH THE EXCEPTION OF BISCODYL AND LISINOPRIL. PATIENT COMPLAINS OF RIGHT HIP AND THIGH PAIN. PATIENT DUE FOR XRAYS OF AREA THIS AM. IV TO RIGHT WRIST WITH D5LR RUNNING AT 50ML/HOUR. SINGH TO DD, CLOUDY. PATIENT UP WITH THERAPY THIS AM. PATIENT RESTING IN BED WITH CALL LIGHT NEAR.
--- NOTE | 2022-06-19 12:49 | NUR ---
ARNOLDO collaborated with PA on patient's discharge. Per PA, patient will dc tomorrow as she is only pod 1. Tori with [facility] notified and is in agreement with this plan.
[2022-06-19] MEDS ORDERED: VITAMIN C500 MG PO (16:58)
[2022-06-19] MEDS ORDERED: ASPI325T6 PO (16:58)
--- NOTE | 2022-06-19 22:27 | NUR ---
PT HAVING INCONTINENCE OF BLADDER. PT EDUCATED ABOUT OPTIONS FOR URGENCY INCLUDING USING THE CALL LIGHT AND FRACTURE TAYLOR MADE AVAILABLE IF SHE WISHES TO UTILIZE QUICKLY UPON FEELING OF URINATION NEEDS.
[2022-06-20 03:54] VITALS: BP 117/75; PULSE 79; TEMP 98.6
[2022-06-20 07:15] LABS: BASO % 0.3 % (0.0-2.0); EOS # 0.1 K/mm3 (0.0-0.7); EOS % 0.7 % (0.0-4.0); GRAN # 8.5 K/mm3 (1.4-6.5); GRAN % 81.5 % (42.2-75.2); LYMPH # 1.1 K/mm3 (1.2-3.4); LYMPH % 10.6 % (20.0-51.0); MEAN CORPUSCULAR HGB CONC 33 g/dl (33.0-37.0); MEAN PLATELET VOLUME 8.8 fl (7.4-10.4); MONO # 0.6 K/mm3 (0.1-0.6); MONO % 5.6 % (1.7-9.3); PLATELET COUNT 190 K/mm3 (130-400); RED BLOOD COUNT 2.98 M/mm3 (4.10-5.30); REDCELL DISTRIBUTION WIDTH-CV 13.5 % (11.5-14.5)
[2022-06-20 07:16] LABS: HEMOGLOBIN 9.7 g/dl (12.5-16.0); MEAN CELL VOLUME 97 fl (80.0-100.0); MEAN CORPUSCULAR HEMOGLOBIN 33 pg (27-31)
[2022-06-20 07:35] LABS: CALCIUM 7.9 mg/dL (8.4-10.2); CREATININE, serum 0.73 mg/dL (0.57-1.11)
[2022-06-20 07:38] LABS: POTASSIUM 2.5 mmol/L (3.5-4.5)
--- NOTE | 2022-06-20 07:40 | NUR ---
MARY ANN Young notified of critical potassium of 2.5. New orders received and initiated.
[2022-06-20 07:41] VITALS: BP 105/52; PULSE 83; TEMP 98.3
--- NOTE | 2022-06-20 07:50 | NUR ---
Patient refusing PO potassium stating she cant take that much liquid in and cant swallow pills. Patient has a PEG tube but refusing medications via PEG. Spoke with MARY ANN Young and new orders received to change to IV.
--- NOTE | 2022-06-20 09:17 | NUR ---
drying can worker notified Tori with [facility] that per hospitalist team is ready to discharge the patient. Patient presented with MCR.IM form. Education provided and patient verbalized her understanding. Patients signed original placed in the patient's chart and copy provided back to the patient. Doc to Doc information and nursing information for report provided to patient's RN and MARY ANN Young. Patient's is present at bedside and is agreeable to transfering the patient. Dischargeplan: [facility]
[2022-06-20] MEDS ORDERED: MAG-OX 400400 MG/TAB PO (09:22)
--- NOTE | 2022-06-20 11:00 | NUR ---
Spoke with patient again about receiving potassium via PEG tube. After lengthy discussion agrees to allow.
[2022-06-20 12:40] VITALS: BP 112/60; PULSE 80; TEMP 98.2
--- NOTE | 2022-06-20 14:45 | NUR ---
Patient stablwe for discharge. INT to left forearm and right wrist DCd-cath intact. Discharge packet given to spouse to take to [facility] bed. Assisted into clean clothing and escorted out by Neelima MCCOY in wheelchair with . Report called to DELORES Burciaga at [facility].
== END 2022-06-20 14:45 | disposition swing bed (61) | DRG 853 ==
LOC: COL.ER 13:22 → SURG 16:16
PROVIDERS: Orthopaedic Surgery Sports Medicine; Physician Assistant; ADMIT Student in an Organized Health Care Education/Training Program
PROC: 0QS606Z Reposition Right Upper Femur with Intramedullary Internal Fixation Device, Open Approach (ICD-10-PCS; principal; 2022-06-18 13:00)
DX: A41.9 Sepsis, unspecified organism (principal); S72.144A Nondisplaced intertrochanteric fracture of right femur, initial encounter for closed fracture; E43 Unspecified severe protein-calorie malnutrition; N39.0 Urinary tract infection, site not specified; K21.9 Gastro-esophageal reflux disease without esophagitis; E03.9 Hypothyroidism, unspecified; I10 Essential (primary) hypertension; G89.29 Other chronic pain; M54.9 Dorsalgia, unspecified; W18.39XA Other fall on same level, initial encounter; M19.90 Unspecified osteoarthritis, unspecified site; Z20.822 Contact with and (suspected) exposure to COVID-19; E87.6 Hypokalemia; N20.0 Calculus of kidney; B96.20 Unspecified Escherichia coli [E. coli] as the cause of diseases classified elsewhere; I08.1 Rheumatic disorders of both mitral and tricuspid valves; Z96.652 Presence of left artificial knee joint; Z88.6 Allergy status to analgesic agent; Z88.8 Allergy status to other drugs, medicaments and biological substances; Z87.891 Personal history of nicotine dependence; Y93.89 Activity, other specified; Y92.89 Other specified places as the place of occurrence of the external cause; Z79.890 Hormone replacement therapy; Z87.442 Personal history of urinary calculi; Z23 Encounter for immunization; Z68.20 Body mass index [BMI] 20.0-20.9, adult
CPT/HCPCS: A4314; C1713; G0378; J0690; J0696; J2250; J2270; J2405; J2704; J3010; J3480; J7030; J7040; J7121

== ENCOUNTER 2022-07-08 14:18 | Emergency (ER) | payer MEDICARE, OTHER ==
[~2022-07-08] VITALS: Ht 144.8 cm; Wt 42.0 kg
[~2022-07-08 14:18] MED LIST changes: +ASPI325T6 PO; +DULCOLAX TAB5 MG PO; +MAG-OX 400400 MG/TAB PO; +MIRALAX PA17 GM/Dose PO; +NATURAL IRON65 MG PO; +PRIL40 PO; +VITAMIN C500 MG PO; +VITAMIN PATCH TD
[2022-07-08 14:35] VITALS: TEMP 97.6
[2022-07-08 17:01] VITALS: BP 133/78; PULSE 67
== END 2022-07-08 17:10 | disposition home or self-care (01) ==
LOC: COL.ER 14:18
DX: S32.009A Unspecified fracture of unspecified lumbar vertebra, initial encounter for closed fracture (principal); Z87.891 Personal history of nicotine dependence; Z88.5 Allergy status to narcotic agent; Z79.891 Long term (current) use of opiate analgesic; X58.XXXA Exposure to other specified factors, initial encounter
CPT/HCPCS: J2270

== ENCOUNTER → 2023-07-28 | Outpatient (CLI) | payer MEDICARE, OTHER ==
[~2023-07-28] MED LIST changes: +HAIRSKINNAILS PO; +MULTI VITAMIN TD; -VITAMIN PATCH TD
== END ==
LOC: COL.RAD 08:39
DX: N20.1 Calculus of ureter (principal); Z87.311 Personal history of (healed) other pathological fracture

== ENCOUNTER → 2023-11-19 | Outpatient (CLI) | payer MEDICARE, OTHER | LOC: COL.RAD 10:01 | DX: N20.0 Calculus of kidney (principal) ==

== ENCOUNTER 2024-01-25 13:39 | Inpatient (IN) | payer MEDICARE, OTHER ==
[2006-07-08 08:43] VITALS: BP 129/77
[~2024-01-25] VITALS: Ht 144.8 cm; Wt 44.5 kg
[2024-01-26] VITALS (9 sets, daily range): BP systolic 96–116; BP diastolic 55–81; PULSE 71–93; TEMP 97.7–98.2
[2024-01-26] MEDS ORDERED: LR 1,000 ML IV SCH ×2 (05:00→17:15)
[2024-01-26] MEDS ORDERED: metroNIDAZOLE 500 MG/100 ML IVPB IV ONE (12:00)
[2024-01-26] MEDS ORDERED: SYNTHROID0.05 MG/TA PO (12:53)
[2024-01-26] MEDS ORDERED: PROMETHAZINE12.5 M5 PO (12:56)
[2024-01-26] MEDS ORDERED: B-121000 MCG PO (13:02)
[2024-01-26] MEDS ORDERED: VITAMIN D31000 I1 PO (13:03)
[2024-01-26] MEDS ORDERED: NEURIVA PLUS B1 EACH PO (13:04)
[2024-01-26] MEDS ORDERED: CALCIUM 600600 MG (13:05)
[2024-01-26] MEDS ORDERED: Vecuronium 10 MG VIAL IV ONE (14:02)
[2024-01-26] MEDS ORDERED: Lidocaine PF 2% (20 MG/ML) 5 ML VIAL ONE (14:05)
[2024-01-26] MEDS ORDERED: fentaNYL 50 MCG/ML 2 ML VIAL ONE (14:06)
[2024-01-26] MEDS ORDERED: Lidocaine 1% w EPI (1:100,000) 20 ML Multi-Dose VIAL ONE (14:12)
[2024-01-26] MEDS ORDERED: dexAMETHasone 10 MG/ML VIAL ONE (14:12)
[2024-01-26] MEDS ORDERED: Midazolam 2 MG/2 ML VIAL ONE (14:24)
[2024-01-26] MEDS ORDERED: HYDROmorphone 2 MG/1 ML VIAL IV PRN (15:30)
[2024-01-26] MEDS ORDERED: Meperidine 50 MG/ML 1 ML VIAL IV PRN (15:30)
[2024-01-26] MEDS ORDERED: droPERidol 2.5 MG/ML 2 ML VIAL IV PRN (15:30)
[2024-01-26] MEDS ORDERED: Ondansetron 4 MG/2 ML VIAL IV PRN ×2 (15:30→17:15)
[2024-01-26] MEDS ORDERED: fentaNYL 50 MCG/ML 2 ML VIAL IV PRN (15:30)
[2024-01-26] MEDS ORDERED: LR 1,000 ML IV ONE (15:39)
[2024-01-26] MEDS ORDERED: Ondansetron 4 MG/2 ML VIAL ONE (15:53)
[2024-01-26] MEDS ORDERED: Ketorolac 30 MG/ML VIAL ONE (15:54)
--- NOTE | 2024-01-26 17:10 | NUR ---
pt admitted to room from pacu, at bedside. vss. med rec and admission assessment complete. pt rates pain a 3/10. abdominal dressings are cdi. pt on 2L nasal cannula. scds to ble. fluids infusing into right forearm. pt oriented to room. tolerating water intake. pt denies needs at this time. call light in reach.
[2024-01-26] MEDS ORDERED: oxyCODONE/Acetaminophen 5-325 MG TAB PO PRN (17:15)
[2024-01-26] MEDS ORDERED: Morphine 4 MG/ML VIAL IV PRN (17:15)
[2024-01-27] VITALS (7 sets, daily range): BP systolic 93–142; BP diastolic 57–77; PULSE 68–91; TEMP 97.7–98.7
--- NOTE | 2024-01-27 02:09 | NUR ---
NURSING SHIFT ASSESSMENT COMPLETED. THE PATIENT WAS ALERT AND ORIENTED. THE PATIENT RATED HER CHRONIC BACK PAIN 9/10. PRN PAIN MEDICATION AVAILABLE. THE PATIENT DENIED OTHER NEEDS OR QUESTIONS. THE DRESSING TO HER ABDOMEN WAS CLEAN, DRY AND INTACT. THE PLAN OF CARE AND EVENING MEDICATIONS REVIEWED. CALL LIGHT AND PERSONAL BELONGINGS WITHIN REACH. BED IN LOW POSITION. BED ALARM ON.
--- NOTE | 2024-01-27 07:59 | NUR ---
PATIENT ALERT AND ORIENTED X4. VSS WITH THE EXCEPTION OF BP BEING SOFT. PATIENT REPORTS MILD INCISIONAL PAIN, WOULD LIKE PAIN MEDS AFTER BREAKFAST. PATIENT TOLERATING PO, DIET ADVANCED. PATIENT REPORTS PASSING GAS. IV TO RIGHT FA INT AND FLUSHES WELL. PATIENT RESTING IN BED, WAITING ON BREAKFAST TO ARRIVE. PATIENT DENIES ANY FURTHER NEEDS. CALL LIGHT IN REACH.
--- NOTE | 2024-01-27 08:30 | NUR ---
PATIENT ALERT AND ORIENTED X4. PATIENT EDUCATED ON SMALL BITES AND SMALL SIPS OF LIQUIDS. BOWEL SOUNDS AUDIBLE IN ALL QUADRANTS, HYPOACTIVE IN RLQ. PATIENT STATED FLATULENCE, NO BM AT THIS TIME. LOW FIBER DIET, BREAKFAST 75% BY PO. SCD IN PLACE BLE. DRESSING INTACT, DRY. REDNESS ON EDGES OF TAPE, GUAZE UNDER TAPE, PROXIMAL, MIDLINE SHADOW UNDER TAPE. PATIENT STATES NO PAIN AT THIS TIME CALL LIGHT WITHIN REACH.
[2024-01-27] MEDS ORDERED: Losartan 25 MG TAB PO SCH (09:00)
--- NOTE | 2024-01-27 09:47 | NUR ---
Initial visit; Patient thanked Gastroenterology Manager for looking in on her and offering God's blessings. Patient has had God's intervention numerous times in helping her get treatment when it was a matter of life or and Gastroenterology Manager mentions she will continue to keep patient in her prayers.
[2024-01-27] MEDS ORDERED: OSCAL 500 TAB500 MG PO (10:04)
--- NOTE | 2024-01-27 11:46 | NUR ---
airplane woodworker met with patient and , Gene Garland# [phone], to discuss discharge planning. PCP is [facility], pharmacy is [facility]. No issues affording medications. Insurance is Medicare A and B and [facility]. No DPOA- and not interested in completing one at this time. DME is walker and bedside commode. Patient receives assistance with ADLS from her Gene. No home health agency at this time. Patient reports her transports her to and from appointments. Patient would like to return home at time of discharge. Discharge plan: Home
--- NOTE | 2024-01-27 13:41 | NUR ---
NO INCENTIVE SPIROMETER IN ROOM.
--- NOTE | 2024-01-27 23:17 | NUR ---
NURSING SHIFT ASSESSMENT COMPLETED. THE PATIENT WAS ALERT AND ORIENTED AND RATING HER PAIN 5/10 TO HER LOWER BACK. PRN PAIN MEDICATION TO BE PROVIDED. THE PLAN OF CARE WAS REVIEWED. PAIN MEDICATION AVAILABILITY AND SCHEDULE REVIEWED. THE PATIENT DENIED OTHER NEEDS. THE BED WAS IN THE LOW POSITION. CALL LIGHT AND PERSONAL BELONGINGS WITHIN REACH.
[2024-01-28 03:48] VITALS: BP 139/89; PULSE 81; TEMP 97.7
[2024-01-28 07:59] VITALS: BP 128/83; PULSE 72; TEMP 98.4
--- NOTE | 2024-01-28 08:34 | NUR ---
PATIENT ALERT AND ORIENTED X4. VSS. PATIENT HERE FOR TAKEDOWN OF JEJUNOSTOMY. DRESSING TO MIDLINE WITH OLD DRAINAGE. ASSESSMENT PERFORMED. PATIENT RESTING IN BED, DENIES BREAKFAST THIS AM. PATIENT ENCOURAGED TO AMBULATE THIS AM WITH NURSING TEAM. PATIENT REPORTS PAIN 3/10, DENIES NEED FOR PAIN MEDICATION. PATIENT RESTING IN BED, CALL LIGHT IN REACH.
--- NOTE | 2024-01-28 10:27 | NUR ---
DISCHARGE INSTRUCTIONS PROVIDED. PATIENT EDUCATION GIVEN. FOLLOW UP APPOINTMENT DISCUSSED. MEDICATIONS REVIEWED. IV DC'D. PATIENT DENIES ANY QUESTIONS OR CONCERNS. PATIENT ESCORTED OUT VIA WHEELCHAIR.
== END 2024-01-28 10:28 | disposition home or self-care (01) | DRG 337 ==
LOC: INPTSU 01-26 11:55 → SURG 01-26 11:55
PROVIDERS: ADMIT Surgery
PROC: 0DNA0ZZ Release Jejunum, Open Approach (ICD-10-PCS; principal; 2024-01-26 15:00)
DX: K63.2 Fistula of intestine (principal); G89.29 Other chronic pain
CPT/HCPCS: A4314; J0690; J1100; J1170; J1836; J1885; J2250; J2405; J2704; J2795; J3010; J7120

== ENCOUNTER 2024-04-27 13:55 | Outpatient (CLI) | payer MEDICARE, OTHER ==
[2006-07-08 08:43] VITALS: BP 129/77
[~2024-04-27] VITALS: Ht 144.8 cm; Wt 45.5 kg
[~2024-04-27 13:55] MED LIST changes: +CALCIUM 600600 MG; +NEURIVA PLUS B1 EACH PO; +OSCAL 500 TAB500 MG PO; +PROMETHAZINE12.5 M5 PO; +SYNTHROID0.05 MG/TA PO; +VITAMIN D31000 I1 PO
[2024-04-27] MEDS ORDERED: Denosumab 60 MG/ML SYRINGE SQ ONE (14:30)
[2024-04-27 14:41] VITALS: BP 142/82; PULSE 82; TEMP 98.3
== END 2024-04-27 15:01 ==
LOC: EUO 13:55
DX: M81.0 Age-related osteoporosis without current pathological fracture (principal)
CPT/HCPCS: J0897